=== PATIENT | female | born 1970 | race Caucasian/White ===

== ENCOUNTER 2017-03-25 11:11 | Emergency (ER) | payer BC ==
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
== END 2017-03-25 13:25 | disposition home or self-care (01) ==
LOC: CFTX 11:11 → CED 11:11 → CFTX 12:27
DX: S50.11XA Contusion of right forearm, initial encounter (principal); S80.02XA Contusion of left knee, initial encounter; J45.909 Unspecified asthma, uncomplicated; F32.9 Major depressive disorder, single episode, unspecified; V86.69XA Passenger of other special all-terrain or other off-road motor vehicle injured in nontraffic accident, initial encounter; Y92.410 Unspecified street and highway as the place of occurrence of the external cause
CPT/HCPCS: 29260; 29505; 73090; 73552; 73560; 99284

== ENCOUNTER 2017-04-23 13:21 | Emergency (ER) | payer BC ==
--- NOTE | ~2017-04-23 | CR157 ---
[facility] A Service of [facility] & [facility] RADIOLOGY TEXT RESULTS PATIENT: EMELYN REIS LOCATION: CFTX : [birth year] UNIT #: [id number] AGE: [address]: Odessa Caro SEX: F ORDER DR: [id number] [facility] [address] [place], [place] [address] [id number] E MR#: [id number] Acc #: [id number] NAME: EMELYN REIS : 1970 SEX: F STUDY DATE/TIME: 04/23/2017 14:26 UNIT: [facility] ROOM: STUDY DESCRIPTION: CR Humerus Min 2 View Rt Attending Physician: Odessa Caro Pa-C Ordering Physician: [facility] Primary Care Physician: Doris Hanson M.D. MEDICAL IMAGING REPORT This report is preliminary unless electronic signature is present EXAM Two views of the right humerus. 04/23/2017 HISTORY Right humerus pain radiating to the elbow, symptoms present for 2-week 2 weeks worse for the past 2 days. No documented injury. COMPARISON None. FINDINGS There is no evidence of fracture, dislocation, or radiopaque foreign body. No focal bone lesions are seen. IMPRESSION Normal humerus. Dictated by... Mary Loving M.D. THIS IS AN ELECTRONICALLY VERIFIED REPORT Mary Loving M.D. at 04/24/2017 8:48 AM Ralph TD: 04/23/2017 16:58 JOB #: [id number] MEDICAL IMAGING REPORT Page 1 of 1 COPY
== END 2017-04-23 15:11 | disposition home or self-care (01) ==
LOC: CFTX 13:21 → CED 13:21 → CFTX 14:44
DX: M79.601 Pain in right arm (principal)
CPT/HCPCS: 73060; 99283